=== PATIENT | male | born 1965 | race Asian ===

== ENCOUNTER 2017-01-10 18:42 | Emergency (ER) | payer OTHER ==
[2017-01-10 18:48] VITALS: TEMP 98.5; BMI 25.1
[2017-01-10] MEDS ORDERED: MAG HYDROX/AL HYDROX/SIMETH 30 ML UNIT-DOSE CUP PO ONE (19:11)
[2017-01-10] MEDS ORDERED: RANITIDINE HCL 150 MG TABLET (FP) PO ONE (19:11)
[2017-01-10] MEDS ORDERED: chlorproMAZINE HCL 25 MG TABLET PO ONE (19:12)
--- NOTE | 2017-01-10 19:18 | PDOC ---
History of Present Illness - History of Present Illness Initial Comments: 01/10/17 19:19 The patient is a 51 year old male with no significant past medical history who presents to the ED complaining of hiccups and burning epigastric pain radiating up the chest that began upon waking up this morning. The patient states this has happened once before many years ago and was relieved with a "pill". He denies any nausea, vomiting, or diarrhea. He denies fever or chills. He denies true chest pain, shortness of breath, or lightheadedness. <Karen Burns - Last Filed: 01/10/17 20:32> - General History Source: Patient Exam Limitations: No Limitations <Armando Nunez - Last Filed: 01/10/17 21:43> <Chelsea Parnell - Last Filed: 01/11/17 06:08> - General Chief Complaint: Pain Stated Complaint: HICCUPS Time Seen by Provider: 01/10/17 19:05 Past History <Karen Burns - Last Filed: 01/10/17 20:32> - Past Medical History Other medical history: none - Psycho/Social/Smoking Cessation Hx Anxiety: No Suicidal Ideation: No Smoking History: Never smoked Have you smoked in the past 12 months: No Information on smoking cessation initiated: No Hx Alcohol Use: No Drug/Substance Use Hx: No Substance Use Type: None <Armando Nunez - Last Filed: 01/10/17 21:43> <Chelsea Parnell - Last Filed: 01/11/17 06:08> - Past Medical History Allergies/Adverse Reactions: Allergies Allergy/AdvReac Type Severity Reaction Status Date / Time No Known Allergies Allergy Verified 01/10/17 18:44 Home Medications: Ambulatory Orders Chlorpromazine [Thorazine -] 10 mg PO TID #9 tablet 01/11/17 Ranitidine HCl [Zantac] 300 mg PO DAILY #14 tablet 01/11/17 Review of Systems - Review of Systems Able to Perform ROS?: Yes Comments:: 01/10/17 19:41 GENERAL/CONSTITUTIONAL: No fever or chills. No weakness. HEAD, EYES, EARS, NOSE AND THROAT: +hiccups. No change in vision. No ear pain or discharge. No sore throat CARDIOVASCULAR: No chest pain or shortness of breath. RESPIRATORY: No cough, wheezing, or hemoptysis. GASTROINTESTINAL: +Epigastric burning. No nausea, vomiting, diarrhea or constipation. GENITOURINARY: No dysuria, frequency, or change in urination. MUSCULOSKELETAL: No joint or muscle swelling or pain. No neck or back pain. SKIN: No rash NEUROLOGIC: No headache, vertigo, loss of consciousness, or change in strength/ sensation. ENDOCRINE: No increased thirst. No abnormal weight change. HEMATOLOGIC/LYMPHATIC: No anemia, easy bleeding, or history of blood clots. ALLERGIC/IMMUNOLOGIC: No hives or skin allergy. <Karen Burns - Last Filed: 01/10/17 20:32> *Physical Exam - Vital Signs Last Vital Signs Temp Pulse Resp BP Pulse Ox 98.5 F 88 18 112/79 100 01/10/17 18:45 01/10/17 18:45 01/10/17 18:45 01/10/17 18:45 01/10/17 18:45 - Physical Exam Comments: 01/10/17 19:43 GENERAL: Awake, alert, and fully oriented, in no acute distress. Appears younger than stated age. Hiccuping throughout exam. HEAD: No signs of trauma EYES: PERRLA, EOMI, sclera anicteric, conjunctiva clear ENT: Auricles normal inspection, hearing grossly normal, nares patent, oropharynx clear without exudates. Moist mucosa NECK: Normal ROM, supple, no lymphadenopathy, JVD, or masses LUNGS: Breath sounds equal, clear to auscultation bilaterally. No wheezes, and no crackles HEART: Regular rate and rhythm, normal S1 and S2, no murmurs, rubs or gallops ABDOMEN: Soft, nontender, normoactive bowel sounds. No guarding, no rebound. No masses EXTREMITIES: Normal range of motion, no edema. No clubbing or cyanosis. No cords, erythema, or tenderness NEUROLOGICAL: Cranial nerves II through XII grossly intact. Normal speech, normal gait SKIN: Warm, Dry, normal turgor, no rashes or lesions noted. <Karen Burns - Last Filed: 01/10/17 20:32> - Vital Signs Last Vital Signs Temp Pulse Resp BP Pulse Ox 98.5 F 88 18 112/79 100 01/10/17 18:45 01/10/17 18:45 01/10/17 18:45 01/10/17 18:45 01/10/17 18:45 <Armando Nunez - Last Filed: 01/10/17 21:43> - Vital Signs Last Vital Signs Temp Pulse Resp BP Pulse Ox 98.5 F 67 14 114/74 97 01/10/17 18:45 01/11/17 06:06 01/11/17 06:06 01/11/17 06:06 01/11/17 06:06 <Chelsea Parnell - Last Filed: 01/11/17 06:08> ED Treatment Course - Medications Given in the ED: ED Medications Discontinued Medications Generic Name Dose Route Start Last Admin Trade Name Freq PRN Reason Stop Dose Admin Al Hydroxide/Mg Hydroxide 30 ml 01/10/17 19:11 01/10/17 19:58 Mylanta Oral Suspension - PO 01/10/17 19:12 30 ml ONCE ONE Administration Chlorpromazine HCl 25 mg 01/10/17 19:12 01/10/17 19:58 Thorazine - PO 01/10/17 19:13 25 mg ONCE ONE Administration Ranitidine HCl 150 mg 01/10/17 19:11 01/10/17 19:58 Zantac - PO 01/10/17 19:12 150 mg ONCE ONE Administration <Chelsea Parnell - Last Filed: 01/11/17 06:08> Medical Decision Making - Medical Decision Making 01/10/17 19:15 A portion of this note was documented by scribe services under my direction. I have reviewed the details of the note, within reason, and agree with the documentation with the following case summary and management plan written by me. Patient treated in the ED. Nursing notes are reviewed and incorporated into the medical decision-making. Vital signs reviewed. Peripheral IV access obtained by the nurse, laboratory studies are drawn and sent, reviewed and interpreted by myself. Vital Signs Temp Pulse Resp BP Pulse Ox 98.5 F 88 18 112/79 100 01/10/17 18:45 01/10/17 18:45 01/10/17 18:45 01/10/17 18:45 01/10/17 18:45 51-year-old male with history of prediabetes presents with hiccups. Patient reported waking up with hiccups earlier this morning. Continued headache up until he started developed some burning-like sensation in his chest. Denies any chest pain or pressure shortness of breath diaphoresis or vomiting. Stated that he has had this several years ago which resolved with a "pill". Patient's presenting with intractable hiccups. We'll try Thorazine. 01/10/17 21:40 With GERD medications and thorazine, the patient reports complete resolution of symptoms. Will discharge patient with PMD follow up. I discussed the physical exam findings, ancillary test results and final diagnoses with the patient. I answered all of the patient's questions. The patient was satisfied with the care received and felt comfortable with the discharge plan and treatment plan. The patient will call their primary care physician within 24 hours to arrange follow-up and will return to the Emergency Department with any new, persistant or worsening symptoms. <Armando Nunez - Last Filed: 01/10/17 21:43> *DC/Admit/Observation/Transfer - Attestations Scribe Attestion: 01/10/17 19:43 Documentation prepared by Karen Burns, acting as medical collections representative for Armando Nunez MD. <Karen Burns - Last Filed: 01/10/17 20:32> - Discharge Dispostion Admit: No <Armando Nunez - Last Filed: 01/10/17 21:43> <Chelsea Parnell - Last Filed: 01/11/17 06:08> Diagnosis at time of Disposition: Hiccups - Discharge Dispostion Disposition: HOME Condition at time of disposition: Improved - Prescriptions Prescriptions: Chlorpromazine [Thorazine -] 10 mg PO TID #9 tablet Ranitidine HCl [Zantac] 300 mg PO DAILY #14 tablet - Referrals Referrals: Fatou Pop MD [Primary Care Provider] - - Patient Instructions Printed Discharge Instructions: DI for Hiccups, True or False: Some Hiccup Remedies Actually Work Additional Instructions: For severe hiccups, you may take 25 mg thorazine every 8 hours as needed. This medication may make you sleepy, so please do not drink or drive on this medication. Follow up with your doctor.
[2017-01-10] MEDS ORDERED: RANITIDINE HCL 150 MG TABLET (FP) ONE (19:51)
[2017-01-10] MEDS ORDERED: MAG HYDROX/AL HYDROX/SIMETH 30 ML UNIT-DOSE CUP ONE (19:51)
[2017-01-11 06:07] VITALS: BP 114/74; PULSE 67
[2017-01-11] MEDS ORDERED: chlorproMAZINE HCL 25 MG TABLET PO ONE (22:11)
== END 2017-01-11 06:10 | disposition home or self-care (01) ==
LOC: JER 18:42
DX: R06.6 Hiccough (principal)
CPT/HCPCS: 99283-25

== ENCOUNTER 2017-01-11 22:51 | Emergency (ER) | payer SELFPAY ==
[2017-01-11 23:43] VITALS: BP 96/72; PULSE 82; TEMP 97.8; BMI 25.8
[2017-01-12] MEDS ORDERED: METOCLOPRAMIDE HCL INJECTION 10 MG/2 ML VIAL IVPB ONE (01:43)
[2017-01-12] MEDS ORDERED: BACLOFEN 10 MG TABLET (FP) PO ONE (01:43)
[2017-01-12] MEDS ORDERED: SODIUM CHLORIDE 1,000 ML IV STA (01:43)
[2017-01-12] MEDS ORDERED: METOCLOPRAMIDE HCL INJECTION 10 MG/2 ML VIAL ONE (02:12)
[2017-01-12] MEDS ORDERED: BACLOFEN 10 MG TABLET (FP) ONE ×2 (02:13→02:20)
[2017-01-12 02:18] LABS: MCH 29.4 pg (25.7-33.7); MCHC 33.7 g/dl (32.0-35.9); MEAN CELL VOLUME 87.4 fl (80-96); MEAN PLT VOLUME 7.2 fl (7.5-11.1); PLATELET COUNT 256 K/MM3 (134-434); RDW 14.2 % (11.9-15.9); WHITE BLOOD COUNT 6.9 K/mm3 (4.0-10.0)
[2017-01-12 02:44] LABS: ALBUMIN 3.4 g/dl (3.4-5.0); ANION GAP 9 (8-16); BILIRUBIN,TOTAL 0.2 mg/dL (0.2-1.0); CALCIUM 8.4 mg/dL (8.5-10.1); CO2 29 mmol/L (21-32); CREATININE 1.1 mg/dL (0.7-1.3); GLUCOSE,RANDOM 92 mg/dL (74-106); SGOT/AST 32 U/L (15-37); SGPT/ALT 37 U/L (12-78); TOT PROT 6.5 g/dl (6.4-8.2)
[2017-01-12 02:46] LABS: ALK PHOS 49 U/L (45-117); TROPONIN I < 0.02 ng/ml (0.00-0.05)
--- NOTE | 2017-01-12 02:57 | PDOC ---
History of Present Illness - General Chief Complaint: Pain Stated Complaint: REVIST/HIPCCUPS Time Seen by Provider: 01/12/17 00:28 History Source: Patient Exam Limitations: No Limitations - History of Present Illness Travel History: No Initial Comments: 01/12/17 02:52 51yo Male patient presents to ED c/o chronic hiccups. Patient states he was seen in this ED yesterday for same symptoms, treated and discharged. Patient was prescribed Zantac, and Chlorpromazine. He reports burning sensation in throat. Patient reports history of hiccups a long time ago. He denies any other complaints. Timing/Duration: reports: constant Quality: reports: moderate Abdominal Pain Onset Location: reports: epigastric Pain Radiation: reports: no radiation Activities at Onset: reports: none Past History - Travel Traveled outside of the country in the last 30 days: No Close contact w/someone who was outside of country & ill: No - Past Medical History Allergies/Adverse Reactions: Allergies Allergy/AdvReac Type Severity Reaction Status Date / Time No Known Allergies Allergy Verified 01/12/17 01:20 Home Medications: Ambulatory Orders Chlorpromazine [Thorazine -] 10 mg PO TID #9 tablet 01/11/17 Ranitidine HCl [Zantac] 300 mg PO DAILY #14 tablet 01/11/17 - Psycho/Social/Smoking Cessation Hx Anxiety: No Suicidal Ideation: No Smoking History: Never smoked Have you smoked in the past 12 months: No Information on smoking cessation initiated: No Hx Alcohol Use: No Drug/Substance Use Hx: No Substance Use Type: None Abd/GI Specific PMHX - Complaint Specific PMHX Colitis: No Diverticulitis: No Gall Bladder Disease: No GERD: No Hepatitis: No Irritable Bowel Synd (IBS): No Pancreatitis: No GI Ulcer Disease: No Review of Systems - Review of Systems Able to Perform ROS?: Yes Is the patient limited Mohawk proficient: No Constitutional: No: Chills, Fever Respiratory: No: Cough, Stridor, Wheezing Cardiac (ROS): No: Chest Pain, Palpitations, Syncope, Chest Tightness ABD/GI: Yes: Other (Heartburn and Hiccups). No: Constipated, Diarrhea, Nausea, Poor Appetite, Poor Fluid Intake, Rectal Bleeding, Vomiting All Other Systems: Reviewed and Negative *Physical Exam - Vital Signs Last Vital Signs Temp Pulse Resp BP Pulse Ox 97.8 F 82 18 96/72 96 01/11/17 23:41 01/11/17 23:41 01/11/17 23:41 01/11/17 23:41 01/11/17 23:41 - Physical Exam General Appearance: Yes: Nourished, Appropriately Dressed, Mild Distress. No: Apparent Distress, Moderate Distress, Severe Distress HEENT: positive: EOMI, JOSÉ MIGUEL, Normal ENT Inspection, Normal Voice, Symmetrical, TMs Normal, Pharynx Normal. negative: Pharyngeal Erythema, Tonsillar Exudate, Tonsillar Erythema, Nasal Congestion, Rhinorrhea, TM Bulging, TM Dull, TM Erythema Neck: positive: Trachea midline, Normal Thyroid, Supple. negative: Rigid, Decreased range of motion, Stridor, Lymphadenopathy (R), Lymphadenopathy (L) Respiratory/Chest: positive: Lungs Clear, Normal Breath Sounds. negative: Chest Tender, Respiratory Distress, Accessory Muscle Use, Labored Respiration, Rapid RR Cardiovascular: positive: Regular Rhythm, Regular Rate. negative: Edema, JVD, Murmur Gastrointestinal/Abdominal: positive: Normal Bowel Sounds, Soft. negative: Distended, Guarding, Rebound, Tenderness Musculoskeletal: positive: Normal Inspection. negative: CVA Tenderness Extremity: positive: Normal Capillary Refill, Normal Inspection, Normal Range of Motion. negative: Pedal Edema, Swelling, Calf Tenderness Integumentary: positive: Normal Color, Dry, Warm Neurologic: positive: superintendent general II-XII NML intact, Fully Oriented, Alert, Normal Mood/ Affect, Normal Response, Motor Strength 5/5 ED Treatment Course - LABORATORY CBC & Chemistry Diagram: 01/12/17 02:05 01/12/17 02:05 - ADDITIONAL ORDERS Additional order review: Laboratory Results 01/12/17 02:05 Sodium 142 Potassium 3.6 Chloride 104 Carbon Dioxide 29 Anion Gap 9 BUN 21 H Creatinine 1.1 Creat Clearance w eGFR > 60 Random Glucose 92 Calcium 8.4 L Total Bilirubin 0.2 AST 32 ALT 37 Alkaline Phosphatase 49 Creatine Kinase 652 H Troponin I < 0.02 Total Protein 6.5 Albumin 3.4 01/12/17 02:05 RBC 4.33 MCV 87.4 MCHC 33.7 RDW 14.2 MPV 7.2 L - Medications Given in the ED: ED Medications Discontinued Medications Generic Name Dose Route Start Last Admin Trade Name Freq PRN Reason Stop Dose Admin Baclofen 10 mg 01/12/17 01:43 01/12/17 02:21 Lioresal - PO 01/12/17 01:44 10 mg ONCE ONE Administration Sodium Chloride 1,000 mls @ 1,000 mls/hr 01/12/17 01:43 01/12/17 02:21 Normal Saline - IV 01/12/17 02:42 1,000 mls/hr ASDIR STA Administration Metoclopramide HCl 10 mg 01/12/17 01:43 01/12/17 02:21 Reglan Injection - IVPB 01/12/17 01:44 10 mg ONCE ONE Administration *DC/Admit/Observation/Transfer Diagnosis at time of Disposition: Hiccups - Discharge Dispostion Disposition: HOME Condition at time of disposition: Improved Admit: No - Patient Instructions Printed Discharge Instructions: DI for Hiccups Additional Instructions: FOLLOW UP WITH YOUR DOCTOR NEEDED. CONTINUE TAKING YOUR MEDICATIONS PRESCRIBED. RETURN IF ANY CONCERNS FOR FURTHER EVALUATION. Print Language: SWEDISH
== END 2017-01-12 03:52 | disposition home or self-care (01) ==
LOC: JER 22:51
PROC: 3E033GC Introduction of Other Therapeutic Substance into Peripheral Vein, Percutaneous Approach (ICD-10-PCS; principal; 2017-01-11)
DX: R06.6 Hiccough (principal)
CPT/HCPCS: 36415; 80053; 82550; 82553; 84484; 85027; 99281-25; J0475

== ENCOUNTER 2017-06-08 12:14 | Day surgery (SDC) | payer OTHER ==
[2017-06-04 15:08] VITALS: BMI 23.6
[~2017-06-08 12:14] MED LIST: LEVOFLOXACIN 500 MG PREMIX BAG IVPB ONE
[2017-06-08] MEDS ORDERED: ONDANSETRON 4 MG/2 ML VIAL IVPUSH PRN (13:55)
[2017-06-08] MEDS ORDERED: ACETAMINOPHEN 325 MG TABLET (FP) PO PRN (13:55)
[2017-06-08] MEDS ORDERED: LACTATED RINGERS SOLUTION 1,000 ML IV SCH (14:00)
[2017-06-08] MEDS ORDERED: MIDAZOLAM HCL 2 MG/2 ML SINGLE DOSE VIAL ONE (14:09)
[2017-06-08 15:20] VITALS: TEMP 98
--- NOTE | 2017-06-08 15:52 | OP ---
Operative Note - Note: Operative Date: 06/08/17 Pre-Operative Diagnosis: right eswl Operation: right ESWL Findings: two lower pole right renal stones measuring 6mm x 5mm and 5mm x 5mm Post-Operative Diagnosis: Same as Pre-op Surgeon: Pranav Bowie Anesthesia: General
[2017-06-08 17:35] VITALS: BP 129/76; PULSE 73
--- NOTE | 2017-06-09 09:29 | OP ---
DATE OF OPERATION: 06/08/2017 PREOPERATIVE DIAGNOSIS: Right renal stones. POSTOPERATIVE DIAGNOSIS: Right renal stones. PROCEDURE: Right extracorporeal shock wave lithotripsy. ATTENDING SURGEON: Leanne Chavis MD ANESTHESIA: Fractional. DESCRIPTION OF OPERATION: The patient was brought in the operating room and placed in a supine position on the operating room table. Ultrasonography and fluoroscopy were performed. Two stones in the right lower pole were identified. A 6 mm x 5 mm and the 5 mm x 5 mm stone were identified. Extracorporeal shock wave lithotripsy was then started after anesthesia was administered. Antibiotics were also given. With fractional anesthesia in effect, 1500 impulses of 20 joules of power were administered to each of the stones. Excellent fragmentation was noted under real-time ultrasonography and fluoroscopy. The patient tolerated the procedure very well. No complications were noted. Disposition of the patient was to recovery room. LEANNE CHAVIS M.D. [id number]
== END 2017-06-08 16:45 | disposition home or self-care (01) ==
LOC: JASU-SURG 12:14
PROVIDERS: ATTEND Urology
PROC: 0TF3XZZ Fragmentation in Right Kidney Pelvis, External Approach (ICD-10-PCS; principal; 2017-06-08 13:30)
DX: N20.0 Calculus of kidney (principal)
CPT/HCPCS: 94760

== ENCOUNTER 2017-06-23 09:54 | Day surgery (SDC) | payer OTHER ==
[2017-06-23 10:39] VITALS: BMI 23.0
[2017-06-23] MEDS ORDERED: LIDOCAINE HCL/PF 2% SDV 5ML VIAL ONE (11:40)
[2017-06-23] MEDS ORDERED: PROPOFOL 20 ML ONE ×2 (11:40)
[2017-06-23] MEDS ORDERED: SIMETHICONE 40 MG/0.6 ML BOTTLE ONE (12:12)
[2017-06-23 12:28] VITALS: TEMP 98
[2017-06-23 12:52] VITALS: PULSE 62
[2017-06-23 13:13] VITALS: BP 118/65
--- NOTE | 2017-06-24 15:47 | PATH ---
Surgical Pathology Report Patient Name: ERIK GRAHAM [facility]. Rec. #: [id number] /Age/Gender: 1965 (Age: 51) / M Account: [id number] Location: [facility]-ENDOSCOPY Taken: 06/23/2017 Received: 06/23/2017 Reported: 06/24/2017 Physicians: Nishant Hernandez M.D. Specimen(s) Received A: RECTAL POLYP B: BX EROSION TERMINAL ILEUM Clinical History Colon screening, weight loss Erosion terminal ileum, polyp rectum Final Diagnosis A. RECTUM, POLYP, POLYPECTOMY: HYPERPLASTIC POLYP. B. TERMINAL ILEUM, EROSION, BIOPSY: ILEAL MUCOSA SHOWING PROMINENT REACTIVE LYMPHOID AGGREGATES. NEGATIVE FOR ILEITIS AND DYSPLASIA. Electronically Signed June Perez M.D. Gross Description A. Received in formalin, labeled "biopsy polyp rectum" is a coughlin, irregular portion of soft tissue measuring 0.2 cm. in greatest dimension. The specimen is submitted in toto in one cassette. B. Received in formalin, labeled "biopsy erosion terminal ileum" is a coughlin, irregular portion of soft tissue measuring 0.6 cm. in greatest dimension. The specimen is submitted in toto in one cassette. /06/23/2017 saudi06/23/2017
== END 2017-06-23 13:25 | disposition home or self-care (01) ==
LOC: JASU-ENDO 09:54
PROVIDERS: ATTEND Internal Medicine Gastroenterology
PROC: 0DBP8ZX Excision of Rectum, Via Natural or Artificial Opening Endoscopic, Diagnostic (ICD-10-PCS; principal; 2017-06-23 11:00)
DX: Z12.11 Encounter for screening for malignant neoplasm of colon (principal); K63.3 Ulcer of intestine; K62.1 Rectal polyp; K55.20 Angiodysplasia of colon without hemorrhage
CPT/HCPCS: 88305-TC

== ENCOUNTER 2018-04-26 12:45 | Day surgery (SDC) | payer OTHER ==
[2018-04-23 15:33] VITALS: BMI 22.6
[2018-04-26] MEDS ORDERED: MIDAZOLAM HCL 2 MG/2 ML SINGLE DOSE VIAL ONE (14:10)
--- NOTE | 2018-04-26 14:54 | OP ---
Operative Note - Note: Operative Date: 04/26/18 Pre-Operative Diagnosis: Right kidney stone Operation: Right ESWL Findings: 7 mm mid pole Right kidney stone Post-Operative Diagnosis: Same as Pre-op Surgeon: Pranav Bowie (no intraoperative complications) Anesthesia: Fractional Estimated Blood Loss (mls): 0
[2018-04-26 15:59] VITALS: BP 118/80; PULSE 55; TEMP 98.1
--- NOTE | 2018-04-26 22:28 | OP ---
DATE OF OPERATION: 04/26/2018 PREOPERATIVE DIAGNOSIS: Right renal stone. POSTOPERATIVE DIAGNOSIS: Right renal stone. PROCEDURE: Right extracorporeal shock wave lithotripsy. ATTENDING: Leanne Chavis MD ANESTHESIA: Fractional. DESCRIPTION OF OPERATION: Patient was brought in the operating room, placed in supine position on the operating room table. Ultrasonography and fluoroscopy were performed. A 7-mm right mid-pole stone was identified. At this point, anesthesia and preoperative antibiotics were administered. Shock wave lithotripsy was then started; 2500 impulses at 17 joules of power were administered to the right renal stone with excellent fragmentation noted. No complications were noted. The disposition of the patient was to the recovery room. LEANNE CHAVIS M.D. [id number]
== END 2018-04-26 16:00 | disposition home or self-care (01) ==
LOC: JASU-SURG 12:45
PROVIDERS: ATTEND Urology
PROC: 0TF3XZZ Fragmentation in Right Kidney Pelvis, External Approach (ICD-10-PCS; principal; 2018-04-26 14:45)
DX: N20.0 Calculus of kidney (principal)

== ENCOUNTER 2019-05-01 15:31 | Emergency (ER) | payer OTHER ==
[2019-05-01 15:48] VITALS: BP 133/82; PULSE 82; TEMP 98.2; BMI 25.1
--- NOTE | 2019-05-01 16:03 | PDOC ---
History of Present Illness - General Chief Complaint: Back Pain Stated Complaint: BACK/LT SHOULDER PAIN Time Seen by Provider: 05/01/19 15:49 History Source: Patient - History of Present Illness Occurred: reports: other Severity: reports: moderate Past History - Past Medical History Allergies/Adverse Reactions: Allergies Allergy/AdvReac Type Severity Reaction Status Date / Time No Known Allergies Allergy Verified 05/01/19 15:48 Home Medications: Ambulatory Orders Gabapentin [Neurontin -] 300 mg PO Q8H 04/23/18 Nabumetone 500 mg PO BID 04/26/18 Cyclobenzaprine HCl [Flexeril 10 mg] 10 mg PO TID #9 tablet 05/01/19 Ibuprofen [Motrin -] 800 mg PO Q6H #30 tablet 05/01/19 Anemia: No Asthma: No Cancer: No Cardiac Disorders: No CVA: No COPD: No CHF: No Dementia: No Diabetes: Yes (BORDERLINE) GI Disorders: Yes (h pylori) Disorders: Yes (STONES) HTN: No Hypercholesterolemia: No Liver Disease: No Seizures: No Thyroid Disease: No - Surgical History Neurologic Surgery: No - Suicide/Smoking/Psychosocial Hx Smoking History: Former smoker Have you smoked in the past 12 months: No If you are a former smoker, when did you quit?: MANY YRS AGO Information on smoking cessation initiated: No Hx Alcohol Use: No Drug/Substance Use Hx: No Substance Use Type: None Review of Systems - Review of Systems Constitutional: No: Chills, Fever ABD/GI: No: Nausea, Vomiting, Abdominal cramping : No: Burning, Dysuria, Flank Pain, Hematuria Musculoskeletal: Yes: Back Pain Neurological: No: Numbness, Tingling, Weakness *Physical Exam - Vital Signs Last Vital Signs Temp Pulse Resp BP Pulse Ox 98.2 F 82 18 133/82 99 05/01/19 15:45 05/01/19 15:45 05/01/19 15:45 05/01/19 15:45 05/01/19 15:45 - Physical Exam General Appearance: Yes: Appropriately Dressed. No: Apparent Distress HEENT: positive: Normal Voice Neck: positive: Supple Respiratory/Chest: negative: Respiratory Distress Gastrointestinal/Abdominal: positive: Soft. negative: Tender, Pulsatile Mass Musculoskeletal: negative: CVA Tenderness, Vertebral Tenderness Extremity: positive: Normal Inspection Integumentary: positive: Dry, Warm Neurologic: positive: Fully Oriented, Alert, Normal Mood/Affect, Motor Strength 5/5 Medical Decision Making - Medical Decision Making 05/01/19 16:03 53 yo M, endorses h/o chronic b/l numbness to b/l LE and on gabapentin, here w / R lower pain radiating down to right foot on and off x several weeks, worse with weight bearing. No worsening of his numbness and no tingling, lower extremity weakness, B/B incontinence or saddle anesthesia. No nausea, vomiting or acute symptoms. Not currently taking any other meds per patient See exam Possible MSK back pain vs sciatica No red flags at this time Dc w/ pain control and PMD f/u for further eval *DC/Admit/Observation/Transfer Diagnosis at time of Disposition: Back pain Qualifiers: Back pain location: low back pain Chronicity: unspecified Back pain laterality : right Sciatica presence: unspecified whether sciatica present Qualified Code(s ): M54.5 - Low back pain - Discharge Dispostion Disposition: HOME Condition at time of disposition: Good - Prescriptions Prescriptions: Cyclobenzaprine HCl [Flexeril 10 mg] 10 mg PO TID #9 tablet Ibuprofen [Motrin -] 800 mg PO Q6H #30 tablet - Referrals - Patient Instructions Printed Discharge Instructions: DI for Low Back Pain Additional Instructions: You need to f/u with your PMD for further evaluation of your back pain Take medication as directed for pain - Post Discharge Activity
== END 2019-05-01 16:03 | disposition home or self-care (01) ==
LOC: JERFT 15:31
DX: M54.5 Low back pain (principal); Z87.891 Personal history of nicotine dependence; R73.03 Prediabetes
CPT/HCPCS: 99282-25

== ENCOUNTER 2019-08-25 08:55 | Emergency (ER) | payer OTHER ==
[2019-08-25 09:04] VITALS: BMI 25.2
--- NOTE | 2019-08-25 09:26 | PDOC ---
History of Present Illness - General Chief Complaint: Chest Pain Stated Complaint: CHEST PAIN Time Seen by Provider: 08/25/19 09:21 - History of Present Illness Initial Comments: 08/25/19 10:20 53 year old man with a history of nephropathy (on gabapentin), nephrolithiasis and cholelithiasis who presents with 2 days of mild central chest pain radiating to the back but that has worsening in severity over the past 1 hour. The patient denies n/v/lightheadedness, shortness of breath. He states that the pain is worse with movement. He has no other complaints. ROS GENERAL/CONSTITUTIONAL: No fever or chills. No weakness. HEAD, EYES, EARS, NOSE AND THROAT: No change in vision. No ear pain or discharge. No sore throat. CARDIOVASCULAR: + chest pain or shortness of breath RESPIRATORY: No cough, wheezing, or hemoptysis. GASTROINTESTINAL: No nausea, vomiting, diarrhea or constipation. GENITOURINARY: No dysuria, frequency, or change in urination. MUSCULOSKELETAL: No joint or muscle swelling or pain. No neck or back pain. NEUROLOGIC: No headache, vertigo, loss of consciousness, or change in strength/ sensation. PE GENERAL: Awake, alert, and fully oriented, in no acute distress HEAD: No signs of trauma, normocephalic, atraumatic EYES: EOMI, sclera anicteric, conjunctiva clear ENT:oropharynx clear without exudates. Moist mucosa NECK: Normal ROM, supple LUNGS: No distress, speaks full sentences, clear to auscultation bilaterally HEART: Regular rate and rhythm, normal S1 and S2, no murmurs, rubs or gallops, R femoral pulse decreased. ABDOMEN: Soft, nontender No guarding, no rebound. No masses CHEST: no tenderness to chest wall palpation EXTREMITIES : Normal inspection, Normal range of motion, no edema. No clubbing or cyanosis. NEUROLOGICAL: Cranial nerves II through XII grossly intact. Normal speech, no focal sensorimotor deficits SKIN: Warm, Dry, normal turgor, no rashes or lesions noted MDM DDX including but not limited to: r/o acs r/o dissection ED Course: cardiac and dissection workup labs wnl ekg: nsr at 73bpm rpt trop negative Patient notes improvement of pain on reassessment given cardiology follow up and advised to make appt tmrw morning patient expresses understanding and agrees to plan strict retrun precuations w/ pcp and card f/u Venice Oneill, PGY2 Emergency Medicine Past History - Past Medical History Allergies/Adverse Reactions: Allergies Allergy/AdvReac Type Severity Reaction Status Date / Time No Known Allergies Allergy Verified 05/01/19 15:48 Home Medications: Ambulatory Orders Gabapentin [Neurontin -] 300 mg PO Q8H 04/23/18 Nabumetone 500 mg PO BID 04/26/18 Anemia: No Asthma: No Cancer: No Cardiac Disorders: No CVA: No COPD: No CHF: No Dementia: No Diabetes: Yes (BORDERLINE) GI Disorders: Yes (h pylori) Disorders: Yes (STONES) HTN: No Hypercholesterolemia: No Liver Disease: No Seizures: No Thyroid Disease: No - Surgical History Neurologic Surgery: No - Immunization History Immunization Up to Date: No - Psycho Social/Smoking Cessation Hx Smoking History: Former smoker Have you smoked in the past 12 months: No If you are a former smoker, when did you quit?: MANY YRS AGO Information on smoking cessation initiated: No Hx Alcohol Use: No Drug/Substance Use Hx: No Substance Use Type: None *Physical Exam - Vital Signs Last Vital Signs Temp Pulse Resp BP Pulse Ox 98.7 F 77 18 131/81 100 08/25/19 09:02 08/25/19 09:02 08/25/19 09:02 08/25/19 09:02 08/25/19 09:02 ED Treatment Course - LABORATORY CBC & Chemistry Diagram: 08/25/19 09:40 08/25/19 09:40 Discharge - Discharge Information Problems reviewed: Yes Clinical Impression/Diagnosis: Atypical chest pain Condition: Stable Disposition: HOME - Admission No - Follow up/Referral Referrals: Fatou Pop MD [Primary Care Provider] - Elfego Kaur MD [Staff Physician] - - Patient Discharge Instructions Patient Printed Discharge Instructions: DI for Atypical Chest Pain Additional Instructions: You were seen in the ED for complaints of chest pain Your labwork and imaging were unremarkable You have a referral for Cardiology and should call for an appt tomorrow morning. Return to the ER if you have worsening chest pain, nausea, vomiting, shortness of breath, lightheadedness, sweating or any other concerning symptoms. - Post Discharge Activity
[2019-08-25] MEDS ORDERED: ACETAMINOPHEN 1000 MG/100 ML VIAL (NON FORMULARY) IVPB ONE (10:06)
[2019-08-25 10:13] LABS: BASO % 1.3 % (0-2.0); HEMATOCRIT 39.8 % (35.4-49); HEMOGLOBIN 13.3 GM/dL (11.7-16.9); LYMPH % 35.9 % (8-40); MCHC 33.3 g/dl (32.0-35.9); MEAN CELL VOLUME 87.1 fl (80-96); MEAN PLT VOLUME 8.1 fl (7.5-11.1); MONO % 11.5 % (3.8-10.2); NEUT % 49.3 % (42.8-82.8); PLATELET COUNT 192 K/MM3 (134-434); RBC 4.58 M/mm3 (4.00-5.60); WHITE BLOOD COUNT 4.8 K/mm3 (4.0-10.0)
[2019-08-25] MEDS ORDERED: ACETAMINOPHEN INJECTION 100 ML IVPB ONE (10:15)
--- NOTE | 2019-08-25 10:34 | PDOC ---
Documentation entered by Yaneli Patterson SCRIBE, acting as scribe for Vito Shelton MD. Vito Shelton MD: This documentation has been prepared by the Leonardo gregory Nirvannie, SCRIBE, under my direction and personally reviewed by me in its entirety. I confirm that the documentation accurately reflects all work, treatment, procedures, and medical decision making performed by me. Attending Attestation - Resident Resident Name: Venice Oneill - ED Attending Attestation I have performed the following: I have examined & evaluated the patient, The case was reviewed & discussed with the resident, I agree w/resident's findings & plan, Exceptions are as noted - HPI HPI: 08/25/19 10:27 The patient is a 53 year old male, with a significant past medical history of borderline diabetes, who presents to the emergency department with 1 day of midsternal chest pain. Pt states that he has had mild chest pain for several days, but today upon awakening began to have severe chest pain radiating to the back. He states the pain is worse with any kind of movement. Denies SOB. Denies pleuritic or exertional pain. No leg swelling. No recent travel/immobilization. He denies any recent fevers, chills, headache or dizziness. He denies any recent nausea, vomit, diarrhea or constipation. He denies any recent dysuria, frequency, urgency or hematuria. Allergies: NKDA Primary Care Physician: Dr. Pop - Physicial Exam PE: 08/25/19 10:28 GENERAL: Awake, alert, and fully oriented, in no acute distress. HEAD: No signs of trauma EYES: PERRLA, EOMI, sclera anicteric, conjunctiva clear ENT: Auricles normal inspection, hearing grossly normal, nares patent, oropharynx clear without exudates. Moist mucosa NECK: Nontender, no stepoffs, Normal ROM, supple, no lymphadenopathy, JVD, or masses LUNGS: Breath sounds equal, clear to auscultation bilaterally. No wheezes, and no crackles HEART: Regular rate and rhythm, normal S1 and S2, no murmurs, rubs or gallops ABDOMEN: Soft, nontender, normoactive bowel sounds. No guarding, no rebound. No masses EXTREMITIES: Normal range of motion, no edema. No clubbing or cyanosis. No cords, erythema, or tenderness NEUROLOGICAL: Cranial nerves II through XII intact. 5/5 strength and sensation in all extremities, Normal speech, normal gait, normal cerebellar function SKIN: Warm, Dry, normal turgor, no rashes or lesions noted. - Medical Decision Making 08/25/19 10:38 53 M with chest pain radiating to his back. Will need to r/o aortic dissection. Pt with nonischemic EKG but will r/o ACS as well. - Labs, trop - CTA chest/abd/pelvis - Pain control 08/25/19 14:04 Labs wnl Trop negative x 2 CTA negative PT reassessed - pain is improved Pt is well appearing, with normal vitals. Clinically stable for DC at this time. I discussed the physical exam findings, ancillary test results and final diagnoses with the patient. I answered all of the patient's questions. The patient was satisfied with the care received and felt comfortable with the discharge plan and treatment plan. The patient agrees to follow up with the primary care physician within 24-72 hours.
[2019-08-25 10:47] LABS: ALBUMIN 3.6 g/dl (3.4-5.0); ALK PHOS 66 U/L (45-117); ANION GAP 3 MMOL/L (8-16); BILIRUBIN,TOTAL 0.2 mg/dL (0.2-1); BLOOD UREA NITROGEN 15.6 mg/dL (7-18); CALCIUM 8.4 mg/dL (8.5-10.1); CHLORIDE 107 mmol/L (98-107); CO2 29 mmol/L (21-32); CREATININE 0.9 mg/dL (0.55-1.3); GLUCOSE,RANDOM 103 mg/dL (74-106); N-TERMINAL BNP 18.7 pg/ml (5-125); SGOT/AST 15 U/L (15-37); SGPT/ALT 21 U/L (13-61); SODIUM 140 mmol/L (136-145); TOT PROT 6.7 g/dl (6.4-8.2)
[2019-08-25 11:27] LABS: PLATELET ESTIMATE NORMAL
[2019-08-25] MEDS ORDERED: MAG HYDROX/AL HYDROX/SIMETH 30 ML UNIT-DOSE CUP PO ONE (12:13)
[2019-08-25] MEDS ORDERED: FAMOTIDINE 20 MG/50 ML IVPB 20 MG/50 ML MG IVPB ONE ×2 (12:13→12:39)
[2019-08-25] MEDS ORDERED: MAG HYDROX/AL HYDROX/SIMETH 30 ML UNIT-DOSE CUP ONE (12:38)
[2019-08-25 13:39] LABS: URINE APPEARANCE CLEAR; URINE BILIRUBIN NEGATIVE (NEGATIVE); URINE COLOR YELLOW; URINE GLUCOSE (UA) NEGATIVE (NEGATIVE)
[2019-08-25 13:40] LABS: URINE KETONE NEGATIVE (NEGATIVE); URINE LEUK ESTERASE NEGATIVE (NEGATIVE); URINE NITRITE NEGATIVE (NEGATIVE); URINE PROTEIN NEGATIVE (NEGATIVE); URINE UROBILINOGEN 0.2 mg/dL (0.2-1.0)
[2019-08-25 14:14] VITALS: BP 131/68; PULSE 78; TEMP 97.5
--- NOTE | 2019-08-26 13:54 | EKG ---
Test Reason : Blood Pressure : / mmHG Vent. Rate : 073 BPM Atrial Rate : 073 BPM P-R Int : 126 ms QRS Dur : 082 ms QT Int : 376 ms P-R-T Axes : 061 034 034 degrees QTc Int : 414 ms NORMAL SINUS RHYTHM LEFT VENTRICULAR HYPERTROPHY NO PREVIOUS ECGS AVAILABLE Confirmed by MANISH ESCOBAR MD ([id number]) on 08/26/2019 1:53:26 PM Referred By: Confirmed By:MANISH ESCOBAR MD
== END 2019-08-25 14:27 | disposition home or self-care (01) ==
LOC: JER 08:55
PROC: 3E033GC Introduction of Other Therapeutic Substance into Peripheral Vein, Percutaneous Approach (ICD-10-PCS; principal; 2019-08-25)
PROC: 3E033NZ Introduction of Analgesics, Hypnotics, Sedatives into Peripheral Vein, Percutaneous Approach (ICD-10-PCS; 2019-08-25)
DX: R07.89 Other chest pain (principal); G62.9 Polyneuropathy, unspecified; E11.9 Type 2 diabetes mellitus without complications; Z87.442 Personal history of urinary calculi; Z87.19 Personal history of other diseases of the digestive system; Z86.19 Personal history of other infectious and parasitic diseases
CPT/HCPCS: 36415; 71045-TC-FY; 71275-TC; 74174-TC; 80053; 81003; 83880; 84484; 85025; 87086; 93005; 93010; 99284-25; J0131

== ENCOUNTER 2019-10-10 06:03 | Day surgery (SDC) | payer OTHER ==
[2019-10-06 12:48] VITALS: BMI 26.1
[2019-10-10] MEDS ORDERED: LIDOCAINE HCL/PF 2% SDV 5ML VIAL ONE (07:56)
[2019-10-10] MEDS ORDERED: PROPOFOL 20 ML ONE (07:56)
[2019-10-10] MEDS ORDERED: MIDAZOLAM HCL 2 MG/2 ML SINGLE DOSE VIAL ONE (07:56)
--- NOTE | 2019-10-10 08:38 | OP ---
Operative Note - Note: Operative Date: 10/10/19 Pre-Operative Diagnosis: RIGHT renal stone Operation: Right ESWL Findings: 5mm lower pole Right kidney stone Surgeon: Pranav Bowie Anesthesia: Fractional Estimated Blood Loss (mls): 0 Drains, Volume Out (mls): 0 Operative Report Dictated: Yes
[2019-10-10] MEDS ORDERED: KETOROLAC TROMETHAMINE 30 MG/1 ML VIAL ONE (09:12)
[2019-10-10 11:12] VITALS: BP 138/94; PULSE 73; TEMP 97.8
--- NOTE | 2019-10-10 18:22 | OP ---
DATE OF OPERATION: 10/10/2019 PREOPERATIVE DIAGNOSIS: Right renal stone. POSTOPERATIVE DIAGNOSIS: Right renal stone. PROCEDURE: Right extracorporeal shock-wave lithotripsy. ATTENDING: Leanne Chavis MD ANESTHESIA: Fractional. DESCRIPTION OF PROCEDURE: The patient was brought in the operating room, placed in a supine position on the operating room table. Ultrasonography and fluoroscopy were performed. A 5-mm right lower pole stone was identified. Anesthesia and preoperative antibiotics were then administered. Shock-wave lithotripsy was then started. There were no complications noted. The patient tolerated the procedure very well. Excellent fragmentation of the stone was noted under real time ultrasonography and fluoroscopy. DISPOSITION: To recovery room. LEANNE CHAVIS M.D. [id number]
== END 2019-10-10 11:11 | disposition home or self-care (01) ==
LOC: JASU-SURG 06:03
PROVIDERS: ATTEND Urology
PROC: 0TF3XZZ Fragmentation in Right Kidney Pelvis, External Approach (ICD-10-PCS; principal; 2019-10-10 08:00)
DX: N20.0 Calculus of kidney (principal)

== ENCOUNTER 2019-12-20 16:20 | Emergency (ER) | payer OTHER ==
[2019-12-20 16:39] VITALS: BP 145/98; PULSE 77; TEMP 98.5; BMI 25.4
--- NOTE | 2019-12-20 17:14 | PDOC ---
History of Present Illness - General Chief Complaint: Respiratory Stated Complaint: fever & cough Time Seen by Provider: 12/20/19 16:33 - History of Present Illness Initial Comments: 12/20/19 17:37 54 years old with no significant past medical history was sent to the hospital for routine blood work and coronavirus testing secondary to 3-day history of subjective fever cough shortness of breath malaise fatigue and body aches no significant runny nose sore throat mild GI symptoms including diarrhea Past History - Past Medical History Allergies/Adverse Reactions: Allergies Allergy/AdvReac Type Severity Reaction Status Date / Time No Known Allergies Allergy Verified 12/20/19 16:22 Home Medications: Ambulatory Orders Gabapentin [Neurontin -] 300 mg PO DAILY 04/23/18 Nabumetone 500 mg PO BID 04/26/18 Anemia: No Asthma: No Cancer: No Cardiac Disorders: No CVA: No COPD: No CHF: No Dementia: No Diabetes: Yes (BORDERLINE) GI Disorders: Yes (h pylori) Disorders: Yes (STONES) HTN: No Hypercholesterolemia: No Liver Disease: No Seizures: No Thyroid Disease: No - Surgical History Abdominal Surgery: No Appendectomy: No Cardiac Surgery: No Cholecystectomy: No Lung Surgery: No Neurologic Surgery: No Orthopedic Surgery: No - Immunization History Immunization Up to Date: No - Psycho Social/Smoking Cessation Hx Smoking History: Former smoker Have you smoked in the past 12 months: No If you are a former smoker, when did you quit?: MANY YRS AGO Information on smoking cessation initiated: No Hx Alcohol Use: No Drug/Substance Use Hx: No Substance Use Type: None Hx Substance Use Treatment: No Review of Systems - Review of Systems Comments:: 12/20/19 17:39 ROS: A complete review of 10 out of 10 review of systems is taken and is negative apart from what is previously mentioned below and in the HPI. *Physical Exam - Vital Signs Last Vital Signs Temp Pulse Resp BP Pulse Ox 98.5 F 77 18 145/98 99 12/20/19 16:37 12/20/19 16:37 12/20/19 16:37 12/20/19 16:37 12/20/19 16:37 - Physical Exam 12/20/19 17:40 Vitals: Triage Vital signs General Appearance: No acute distress, well nourished well developed, Head: Atraumatic, Cardiac: Regular rate and rhythym, no murmurs, no rubs, no gallops, Lungs: Clear to auscultation bilateral, good air movement bilaterally, Abdomen: Soft, non distended, normal bowel sounds, non tender to palpation Extremities: Full range of motion to all extremities, no cyanosis, clubbing, or edema Skin: Warm and dry, no rashes or lesions, no rash, no petechiae Psych: Normal mood, normal affect ED Treatment Course - LABORATORY CBC & Chemistry Diagram: 12/20/19 17:00 12/20/19 17:00 Medical Decision Making - Medical Decision Making 12/20/19 17:40 Well-appearing no apparent distress subjective fever malaise cough shortness of breath vital signs normal here was sent to the ED for evaluation for coronavirus and routine blood work. Routine blood work sent Dr. Batres will follow-up his blood work. Patient was swabbed for coronavirus he will be discharged home since he is well-appearing he will be placed on self-monitoring since he has no active fever right now he will call the [facility] for further recommendations we will send our swab for Coban 19 as well as the person under investigation paperwork to our laboratory should they decide to test. Discharge - Discharge Information Problems reviewed: Yes Clinical Impression/Diagnosis: Malaise Condition: Fair Disposition: HOME - Admission No - Follow up/Referral - Patient Discharge Instructions Patient Printed Discharge Instructions: How to Take an Oral Temperature Additional Instructions: Call the [facility] for further recommendations. Stay home and monitor yourself for fever. A coronavirus swab was sent to our laboratory the Department of Health was contacted they will decide on further testing and management [phone] business hours [phone] after hours Avoid contact with other people if you have symptoms only return to the emergency department for any return to the emergency department for severe respiratory symptoms. - Post Discharge Activity
[2019-12-20 17:50] LABS: BASO % 0.6 % (0-2.0); HEMATOCRIT 40.1 % (35.4-49); HEMOGLOBIN 13.3 GM/dL (11.7-16.9); LYMPH % 28.7 % (8-40); MCHC 33.1 g/dl (32.0-35.9); MEAN CELL VOLUME 87.8 fl (80-96); MEAN PLT VOLUME 7.6 fl (7.5-11.1); MONO % 13.2 % (3.8-10.2); NEUT % 56.5 % (42.8-82.8); PLATELET COUNT 246 K/MM3 (134-434); RBC 4.57 M/mm3 (4.00-5.60); RDW 14.1 % (11.9-15.9); WHITE BLOOD COUNT 4.1 K/mm3 (4.0-10.0)
[2019-12-20 18:39] LABS: ALBUMIN 3.4 g/dl (3.4-5.0); BILIRUBIN,TOTAL 0.3 mg/dL (0.2-1); BLOOD UREA NITROGEN 11.8 mg/dL (7-18); CALCIUM 8.4 mg/dL (8.5-10.1); POTASSIUM 4.1 mmol/L (3.5-5.1); TOT PROT 7.1 g/dl (6.4-8.2)
== END 2019-12-20 18:31 | disposition home or self-care (01) ==
LOC: JER 16:20
DX: Z20.89 Contact with and (suspected) exposure to other communicable diseases (principal)
CPT/HCPCS: 36415; 80053; 80061; 82150; 82306; 82607; 83036; 83690; 83721; 84443; 85025; 87389; 87798; 99283-25

== ENCOUNTER 2022-03-24 04:23 | Day surgery (SDC) | payer OTHER ==
[2022-03-20 11:31] VITALS: BMI 23.3
[2022-03-24] MEDS ORDERED: MIDAZOLAM HCL 2 MG/2 ML SINGLE DOSE VIAL ONE (11:36)
[2022-03-24] MEDS ORDERED: DEXAMETHASONE SOD PHOSPHATE 4 MG/1 ML VIAL ONE (11:50)
[2022-03-24 13:12] VITALS: BP 137/86; PULSE 77; TEMP 98.1
== END 2022-03-24 14:13 | disposition home or self-care (01) ==
LOC: JASU-SURG 04:23
PROVIDERS: ATTEND Urology
PROC: 0TF3XZZ Fragmentation in Right Kidney Pelvis, External Approach (ICD-10-PCS; principal; 2022-03-24 11:30)
DX: N20.0 Calculus of kidney (principal)

== ENCOUNTER 2022-05-20 04:25 | Day surgery (SDC) | payer OTHER ==
[2022-05-14 11:21] VITALS: BMI 25.8
[2022-05-20 10:26] VITALS: TEMP 98
[2022-05-20 11:31] VITALS: BP 120/77; PULSE 69; RESP 17
== END 2022-05-20 12:17 | disposition home or self-care (01) ==
LOC: JASU-ENDO 04:25
PROVIDERS: ATTEND Internal Medicine Gastroenterology
PROC: 0DJD8ZZ Inspection of Lower Intestinal Tract, Via Natural or Artificial Opening Endoscopic (ICD-10-PCS; principal; 2022-05-20 09:30)
DX: Z12.11 Encounter for screening for malignant neoplasm of colon (principal); K64.8 Other hemorrhoids

== ENCOUNTER 2022-07-28 11:14 | Emergency (ER) | payer OTHER ==
[2022-07-28 12:20] VITALS: BP 158/83; PULSE 90; RESP 17; TEMP 98.1; BMI 23.9
[2022-07-28 14:43] LABS: BASO % 1.5 % (0-2.0); EOS % 0.9 % (0-4.5); HEMOGLOBIN 13.7 GM/dL (11.7-16.9); LYMPH % 35.4 % (8-40); MCH 28.9 pg (25.7-33.7); MCHC 32.7 g/dl (32.0-35.9); MEAN CELL VOLUME 88.6 fl (80-96); MEAN PLT VOLUME 8.8 fl (7.5-11.1); MONO % 11.5 % (3.8-10.2); NEUT % 50.7 % (42.8-82.8); PLATELET COUNT 234 10^3/uL (134-434); RBC 4.74 M/mm3 (4.00-5.60); RDW 13.7 % (11.9-15.9); WHITE BLOOD COUNT 3.9 K/mm3 (4.0-10.0)
[2022-07-28 15:09] LABS: BLOOD UREA NITROGEN 13.7 mg/dL (7-18)
[2022-07-28 15:12] LABS: CREATININE 0.9 mg/dL (0.55-1.3)
[2022-07-28 15:13] LABS: BILIRUBIN,TOTAL 0.4 mg/dL (0.2-1); TOT PROT 7.1 g/dl (6.4-8.2)
[2022-07-28 15:26] LABS: URINE APPEARANCE CLEAR; URINE BILIRUBIN NEGATIVE (NEGATIVE); URINE COLOR YELLOW; URINE GLUCOSE (UA) NEGATIVE (NEGATIVE); URINE KETONE NEGATIVE (NEGATIVE); URINE LEUK ESTERASE NEGATIVE (NEGATIVE); URINE NITRITE NEGATIVE (NEGATIVE); URINE PROTEIN NEGATIVE (NEGATIVE); URINE UROBILINOGEN 0.2 mg/dL (0.2-1.0)
== END 2022-07-28 15:48 | disposition home or self-care (01) ==
LOC: JERFT 11:14 → JER 11:14 → JERFT 15:48
DX: K64.9 Unspecified hemorrhoids (principal)
CPT/HCPCS: 36415; 80053; 81003; 83690; 85025; 99283-25

== ENCOUNTER 2022-12-30 05:25 | Day surgery (SDC) | payer OTHER ==
[2022-12-29 14:25] VITALS: BMI 23.6
[2022-12-30 13:24] VITALS: BP 125/96; PULSE 80; RESP 16
[2022-12-30 14:28] VITALS: TEMP 98
== END 2022-12-30 13:15 | disposition home or self-care (01) ==
LOC: JASU-ENDO 05:25
PROVIDERS: ATTEND Internal Medicine Gastroenterology
PROC: 0DB78ZX Excision of Stomach, Pylorus, Via Natural or Artificial Opening Endoscopic, Diagnostic (ICD-10-PCS; 2022-12-30)
PROC: 0DB68ZX Excision of Stomach, Via Natural or Artificial Opening Endoscopic, Diagnostic (ICD-10-PCS; principal; 2022-12-30 12:00)
DX: K29.50 Unspecified chronic gastritis without bleeding (principal)
CPT/HCPCS: 88305-TC; 88342-TC